=== PATIENT | female | born 1960 | race Caucasian/White ===

== ENCOUNTER 2016-04-27 14:28 | Inpatient (IN) | payer BC, MEDICARE ==
--- NOTE | 2016-04-27 20:18 | ED ---
Psych HPI - General Chief Complaint: Psychiatric Symptoms Stated Complaint: PETITION Time Seen by Provider: 04/27/16 14:46 Source: patient, police Mode of arrival: ambulatory - History of Present Illness Initial Comments: Patient presents to the emerge department by police custody, for disorganized behavior and thought processes. They're concerned that she is a danger to herself and others. Patient denies any fever, chills, chest pain or shortness of breath. She has no belly or back pain. She has no nausea or vomiting. She has not tried to harm herself or others. She has no weakness or trouble walking. - Related Data Home Medications Medication Instructions Recorded Confirmed Diazepam [Valium] 10 mg PO DAILY 04/27/16 04/27/16 oxyCODONE HCL [OxyCONTIN] 60 mg PO BID 04/27/16 04/27/16 Allergies Allergy/AdvReac Type Severity Reaction Status Date / Time bacampicillin Allergy Unknown Verified 04/27/16 15:04 [From Spectrobid] budesonide [From Symbicort] Allergy Unknown Verified 04/27/16 15:04 formoterol [From Symbicort] Allergy Unknown Verified 04/27/16 15:04 pregabalin [From Lyrica] Allergy Unknown Verified 04/27/16 15:04 Review of Systems ROS Statement: Those systems with pertinent positive or pertinent negative responses have been documented in the HPI. ROS Other: All systems not noted in ROS Statement are negative. Past Medical History Past Medical History: No Reported History History of Any Multi-Drug Resistant Organisms: None Reported Past Surgical History: Tubal Ligation Additional Past Surgical History / Comment(s): ovarian cyst removed Past Psychological History: Anxiety, Depression Smoking Status: Current every day smoker Past Alcohol Use History: None Reported Past Drug Use History: None Reported General Exam Limitations: no limitations General appearance: alert, in no apparent distress Head exam: Present: atraumatic, normocephalic, normal inspection Eye exam: Present: normal appearance, PERRL, EOMI. Absent: scleral icterus, conjunctival injection, periorbital swelling ENT exam: Present: normal exam, mucous membranes moist Neck exam: Present: normal inspection. Absent: tenderness, meningismus, lymphadenopathy Respiratory exam: Present: normal lung sounds bilaterally. Absent: respiratory distress, wheezes, rales, rhonchi, stridor Cardiovascular Exam: Present: regular rate, normal rhythm, normal heart sounds. Absent: systolic murmur, diastolic murmur, rubs, gallop, clicks GI/Abdominal exam: Present: soft, normal bowel sounds. Absent: distended, tenderness, guarding, rebound, rigid Extremities exam: Present: normal inspection, full ROM, normal capillary refill. Absent: tenderness, pedal edema, joint swelling, calf tenderness Back exam: Present: normal inspection Neurological exam: Present: alert, oriented X3, CN II-XII intact Psychiatric exam: Present: normal affect, normal mood Skin exam: Present: warm, dry, intact, normal color. Absent: rash Course Vital Signs 04/27/16 04/27/16 14:39 18:49 Temperature 99.0 F Pulse Rate 56 L 83 Respiratory 16 18 Rate Blood Pressure 129/82 151/87 O2 Sat by Pulse 100 97 Oximetry Medical Decision Making - Medical Decision Making Patient presents with psychiatric disorder. She was medically cleared. Psychiatry eval and the patient and will be admitting the patient to their service. - Lab Data Lab Results 04/27/16 Range/Units 15:20 Urine Opiates Screen Not Detected (NotDetected) Ur Oxycodone Screen Detected H (NotDetected) Urine Methadone Screen Not Detected (NotDetected) Ur Propoxyphene Screen Not Detected (NotDetected) Ur Barbiturates Screen Not Detected (NotDetected) U Tricyclic Antidepress Not Detected (NotDetected) Ur Phencyclidine Scrn Not Detected (NotDetected) Ur Amphetamines Screen Not Detected (NotDetected) U Methamphetamines Scrn Not Detected (NotDetected) U Benzodiazepines Scrn Detected H (NotDetected) Urine Cocaine Screen Not Detected (NotDetected) U Marijuana (THC) Screen Not Detected (NotDetected) Disposition Clinical Impression: Psychosis Disposition: TRANSFER TO PSYCH HOSP/UNIT Condition: Fair Time of Disposition: 20:18
[2016-04-27] MEDS ORDERED: MAG HYDROX/AL HYDROX/SIMETH 30 ML CUP PO PRN (22:48)
[2016-04-27] MEDS ORDERED: ZIPRASIDONE 20 MG VIAL IM PRN (22:55)
[2016-04-27] MEDS ORDERED: LORazepam 2 MG/ML SYRINGE IM PRN (23:01)
[2016-04-27] MEDS: LORazepam 1 MG TAB PO PRN (23:35)
[2016-04-27] MEDS: risperiDONE 1 MG TAB PO SCH (23:35)
[2016-04-28] MEDS: risperiDONE 1 MG TAB PO SCH ×2 (08:43→20:27)
[2016-04-28] MEDS: HYDROcodone/APAP 5-325MG 1 EACH TAB PO PRN ×3 (08:45→22:01)
[2016-04-28 08:51] LABS: Basophils % (A) 1 %; CH 32.6; CHCM 32.5; Eosinophils # (A) 0.1 k/uL (0-0.7); Eosinophils % (A) 1 %; HCT 45.8 % (34.0-46.0); HDW 2.14; HGB 14.7 gm/dL (11.4-16.0); Luc # (Auto) 0.09; Luc % (Auto) 2; Lymphocytes # (A) 1.6 k/uL (1.0-4.8); Lymphocytes % (A) 27 %; MCH 32.4 pg (25.0-35.0); MCHC 32.1 g/dL (31.0-37.0); MCV 100.8 fL (80.0-100.0); Mean Platelet Volume 8.8; Monocytes # (A) 0.4 k/uL (0-1.0); Monocytes % (A) 8 %; Neutrophils # (A) 3.6 k/uL (1.3-7.7); Neutrophils % (A) 62 %; RBC 4.54 m/uL (3.80-5.40); RDW 13.4 % (11.5-15.5); WBC 5.8 k/uL (3.8-10.6); WBC (Perox) 5.53
[2016-04-28 09:11] LABS: ALT 43 U/L (9-52); AST 27 U/L (14-36); Alkaline Phosphatase 81 U/L (38-126); Anion Gap 12 mmol/L; Blood Urea Nitrogen 15 mg/dL (7-17); Carbon Dioxide 28 mmol/L (22-30); Chloride 104 mmol/L (98-107); Glucose 80 mg/dL (74-99); Non-African American GFR(MDRD) >60 (>60 ml/min/1.73 sqM); Potassium 4.1 mmol/L (3.5-5.1); Sodium 144 mmol/L (137-145); Total Bilirubin 0.5 mg/dL (0.2-1.3); Total Protein 6.7 g/dL (6.3-8.2)
[2016-04-28] MEDS ORDERED: risperiDONE 1 MG TAB PO SCH (10:45)
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
[2016-04-28] MEDS: SERTRALINE 25 MG TAB PO SCH (12:18)
[2016-04-28] MEDS: GABAPENTIN 400 MG CAP PO SCH ×2 (16:23→20:27)
[2016-04-28] MEDS: NICOTINE 21MG/24HR PATCH TRANSDERM SCH (16:23)
--- NOTE | 2016-04-28 22:32 | CONS ---
DATE OF CONSULTATION: REASON FOR CONSULTATION: Medical clearance and elevated TSH. Patient is admitted for acute psychosis. Patient is clinically doing well. Patient denied any fever, chills, nausea, vomiting, abdominal pain, dysuria. REVIEW OF SYSTEMS: CONSTITUTIONAL: No fever, no malaise, no fatigue. HEENT: No recent visual problems or hearing problems. Denied any sore throat. CARDIOVASCULAR: No chest pain, orthopnea, PND, no palpitations, no syncope. PULMONARY: No shortness of breath, no cough, no hemoptysis. GASTROINTESTINAL: No diarrhea, no nausea, no vomiting, no abdominal pain. Normoactive bowel sounds. NEUROLOGICAL: No headaches, no weakness, no numbness. HEMATOLOGICAL: Denies any bleeding or petechiae. GENITOURINARY: Denies any burning micturition, frequency, or urgency. MUSCULOSKELETAL/RHEUMATOLOGICAL: Denies any joint pain, swelling, or any muscle pain. ENDOCRINE: Denies any polyuria or polydipsia. The rest of the 14 point review of systems is negative. PAST MEDICAL HISTORY: Not significant except for back pain and back pain-related neuropathy, for which patient takes gabapentin. PSYCHOLOGICAL HISTORY: Anxiety, depression. SOCIAL HISTORY: Patient smokes about 1-1/2 packs per day. Denied any alcohol abuse or any drug abuse. Patient's home medications include: 1. Diazepam. 2. Oxycodone. 3. Neurontin. PHYSICAL EXAMINATION: VITAL SIGNS: Temperature 97.2, pulse of 84, respirations of 16. Blood pressure is 115/74. Saturating 92% on room air. GENERAL: The patient is alert and oriented x3, not in any acute distress. Well developed, well nourished. HEENT: Pupils are round and equally reacting to light. EOMI. No scleral icterus. No conjunctival pallor. Normocephalic, atraumatic. No pharyngeal erythema. No thyromegaly. CARDIOVASCULAR: S1 and S2 present. No murmurs, rubs, or gallops. PULMONARY: Chest is clear to auscultation, no wheezing or crackles. ABDOMEN: Soft, nontender, nondistended, normoactive bowel sounds. No palpable organomegaly. MUSCULOSKELETAL: No joint swelling or deformity. EXTREMITIES: No cyanosis, clubbing, or pedal edema. NEUROLOGICAL: Gross neurological examination did not reveal any focal deficits. SKIN: No rashes. LABORATORY DATA: CBC, CMP are essentially within normal limits. TSH is 6.6 and I ordered a T4, which is 1.2. Patient's drug screen is positive for benzodiazepines, although patient appears to have been taking benzodiazepine Valium at home. ASSESSMENT AND PLAN: 1. Acute psychosis. Management as per primary services. 2. Back pain and back spasms, for which I will leave the ( ) and for neuropathy, gabapentin will be continued. Patient is already on Morley. I will leave the decision about continuation of Morley to primary service. 3. Elevated TSH with normal T4. Patient probably has sick euthyroid syndrome. My suspicion is low for subclinical hypothyroidism. Patient's TSH needs to be retested in about a month. 4. Nicotine abuse. We ordered nicotine patch. Counseling was provided. Thank you for letting me participate in this patient's care. Will sign off at this point of time. Please call me back if needed.
[2016-04-29] MEDS: HYDROcodone/APAP 5-325MG 1 EACH TAB PO PRN ×3 (08:19→22:30)
[2016-04-29] MEDS: SERTRALINE 25 MG TAB PO SCH (08:20)
[2016-04-29] MEDS: GABAPENTIN 400 MG CAP PO SCH ×3 (08:20→20:56)
[2016-04-29] MEDS: risperiDONE 1 MG TAB PO SCH ×2 (08:20→20:55)
[2016-04-29] MEDS: NICOTINE 21MG/24HR PATCH TRANSDERM SCH (08:20)
--- NOTE | 2016-04-29 09:08 | P.PN ---
Progress Note - Text Interval history: The patient is found in the dining room finishing breakfast she follows me to an interview room. She states that she slept approximately 3- 4 hours last night she still feels tired. Appetite diminished during the morning hours she states this improves during the course of the day into the evening. She states that she had a visit from her son and [id number] and that went well. She continues to harbor paranoid and persecutory thoughts as previously noted. She continues to lack insight into her presenting symptoms and asked to be discharged. She states she feels like she is a "dwyer of the court" and feels uncomfortable. Mental status exam: The patient is a female appearing her stated age, she has a disheveled appearance she is dressed in hospital gown. Eye contact is appropriate speech is spontaneous fluent nonpressured. She continues to spontaneously report paranoid and persecutory thoughts. Insight and judgment are impaired. She is reporting no thoughts of self-harm or harm to others. She demonstrates no verbal or physical aggressiveness. Thought process for the most part is linear today. She does not appear hypomanic or manic. Affect remains blunted throughout the session. Plan: The patient will continue on the Risperdal and Zoloft as written. We are awaiting records from [facility], her last psychiatric hospitalization from January. We will monitor her for safety we will continue to provide reality orientation when possible. She is encouraged to continue participating in group. Vital signs reviewed.
[2016-04-30] MEDS: HYDROcodone/APAP 5-325MG 1 EACH TAB PO PRN ×3 (06:07→20:21)
[2016-04-30] MEDS: NICOTINE 21MG/24HR PATCH TRANSDERM SCH (08:42)
[2016-04-30] MEDS: SERTRALINE 25 MG TAB PO SCH (08:43)
[2016-04-30] MEDS: GABAPENTIN 400 MG CAP PO SCH ×3 (08:43→20:19)
[2016-04-30] MEDS: risperiDONE 1 MG TAB PO SCH (08:43)
--- NOTE | 2016-04-30 09:14 | P.PN ---
Progress Note - Text Interval history: The patient is found in the hallway she follows me to an interview room. She reports that she would like to be discharged. She states is no reason for her to be here in the hospital. She states there is no such thing as a contact order between her and . She goes on to report that the police are ignoring all of the things that are happening to her. She spent several minutes describing how family members police the hospital and others are doing things to her. She has been compliant with her medication here on the mental health unit. She reports having an increased production of saliva but does not want to utilize Cogentin as she states she also has dry mouth. We discussed other antipsychotic medication choices but no others were acceptable. Mental status exam: The patient is a female appearing her stated age. Hygiene grooming adequate she is dressed in her own clothing. Speech is fluent and spontaneous she is verbose mildly pressured at times. She continues to spontaneously describe paranoid and persecutory thoughts involving most lozoya of her life and involving most people in her life. She lacks insight into her current symptoms for this hospitalization and the prior hospitalization. She states that I'm keeping her here because of her insurance and what I will get paid. She demonstrates no verbal or physical aggressiveness. Thought process is circumstantial and tangential at times. Affect is constricted. Plan: The patient will continue on her current psychotropic medications we will consider titrating the Risperdal further. We will consider adding Cogentin to ameliorate side effects as needed. We will continue to provide reality orientation when possible. We will monitor her for safety. Vital signs were reviewed. Dr. Valverde will provide coverage over the weekend.
[2016-04-30] MEDS ORDERED: BENZTROPINE MESYLATE 0.5 MG TAB PO PRN (09:20)
[2016-04-30] MEDS: risperiDONE ODT 1 MG TAB PO SCH (20:19)
[2016-05-01] MEDS: HYDROcodone/APAP 5-325MG 1 EACH TAB PO PRN ×4 (04:35→22:11)
[2016-05-01] MEDS: GABAPENTIN 400 MG CAP PO SCH ×3 (08:52→21:17)
[2016-05-01] MEDS: risperiDONE ODT 1 MG TAB PO SCH ×2 (08:52→21:17)
[2016-05-01] MEDS: NICOTINE 21MG/24HR PATCH TRANSDERM SCH (08:53)
[2016-05-01] MEDS: SERTRALINE 25 MG TAB PO SCH (08:53)
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
[2016-05-02] MEDS: HYDROcodone/APAP 5-325MG 1 EACH TAB PO PRN ×4 (04:42→22:03)
[2016-05-02] MEDS: risperiDONE ODT 1 MG TAB PO SCH ×2 (09:08→22:02)
[2016-05-02] MEDS: GABAPENTIN 400 MG CAP PO SCH ×3 (09:08→22:02)
[2016-05-02] MEDS: SERTRALINE 25 MG TAB PO SCH (09:08)
[2016-05-02] MEDS: NICOTINE 21MG/24HR PATCH TRANSDERM SCH (09:08)
--- NOTE | 2016-05-02 15:38 | P.PN ---
Subjective Psychiatric progress notes. Patient is a very pleasant 56-year-old white female who comes readily for the evaluation and though she was convincing as to her statements yesterday as to why she is here and people stealing things from her house was not so convincing today. for many questionable areas she was somewhat evasive or responded that she did not know. The more she discussed it was becoming obvious that many of her believes are of a delusional nature. Patient is not sure whether she can go home. Apparently she had been spending money on monitoring equipments due to her delusions. Patient does not appear to be against treatment though she is vague as to its need. Mental status. Somewhat thin built alert and pleasant female who is dressed in her own clothes and coming readily for the evaluation. Does not show any significant psychomotor disturbance. Her attention and concentration could be aroused and sustained. Speech and thought process did not show any abnormal traits; however her thought content was focusing on many delusional believes of people trying to steal from her and having concerns about the safety and security at her. Denies any hallucinations. Sleeping good. Limited in insight and judgment. Continue current treatment plans. Objective - Vital Signs Vital signs: Vital Signs Temp 97.7 F 05/02/16 06:50 Pulse 72 05/02/16 06:50 Resp 16 05/02/16 06:50 BP 119/83 05/02/16 06:50 Pulse Ox 100 04/29/16 00:18 Intake & Output 05/01/16 05/02/16 05/02/16 18:59 06:59 18:59 Weight 45.7 kg - Labs CBC & Chem 7: 04/28/16 08:17 04/28/16 08:17
[2016-05-03] MEDS: HYDROcodone/APAP 5-325MG 1 EACH TAB PO PRN ×3 (06:53→20:23)
[2016-05-03] MEDS: NICOTINE 21MG/24HR PATCH TRANSDERM SCH (08:49)
[2016-05-03] MEDS: risperiDONE ODT 1 MG TAB PO SCH ×2 (08:50→20:24)
[2016-05-03] MEDS: GABAPENTIN 400 MG CAP PO SCH ×3 (08:50→20:24)
[2016-05-03] MEDS: SERTRALINE 25 MG TAB PO SCH (08:50)
--- NOTE | 2016-05-03 14:10 | P.PN ---
Progress Note - Text CLINICAL PROBLEMS: She is a 56-year-old female who has history of a psychotic disorder. She presented to unit involuntary under an alternate treatment order after failing to follow through with outpatient treatment. On admission she was paranoid and suspicious. She expressed a delusional belief regarding being monitored by "other individuals" and her cable service provider. She complained of back, hip and neck pain that is not relieved by her current opioid pain medication. She stated that she takes OxyContin 60 mg by mouth twice a day at home. She denied opiate withdrawal symptoms. She also complained of drooling and increased nightmares since she started risperidone. She wishes to return to live with her . She alleges that the "no contact " order was placed by the courts and her plans to "drop the charges". 24 HOUR EVENTS: She has been compliant with prescribed medications included risperidone 1 mg twice a day. She slept for 5 hours last night. She remains on 15 minute checks. She is posed no management problem. EXAMINATION: She presented as a casually groomed and 56-year-old woman who was pleasant on approach. She maintained eye contact and attended to the interview. She had no distinction wishing features or prominent physical modalities. She had a bright facial expression. She was alert and oriented to person, place and time. She showed no abnormality of psychomotor activity. She had a normal gait and station. She had no abnormal involuntary movements. Her speech was spontaneous with normal rate, rhythm and volume. She had no articulation difficulties. Her affect was blunted but stable and appropriate. She denied suicidal ideation or wishes. She denied homicidal ideation. She denied depressive cognitions such as hopelessness, helplessness and worthlessness. She denied ideas of reference, thought insertion, thought broadcasting or thought control. She did not express paranoid ideation or delusional thoughts. She denied feeling that she was being in monitored or observed. She denied hallucinations and did not appear to be responding to internal stimuli. PERTINENT DATA: Her TSH on 04/28/2016 6.6. According to the loom control chain builder corporate travel consultant she "probably has a sick euthyroid syndrome"and does not require thyroid replacement. The loom control chain builder did not recommend opiate pain medications for the treatment of her complaints of pain. ASSESSMENT: She is not showing signs or symptoms of psychosis. She is not paranoid or suspicious. PLAN: Continue risperidone 1 mg by mouth twice a day, sertraline 25 mg daily and benztropine 0.5 mg twice a day. Gabapentin 800 mg by mouth 3 times a day for pain and [place] one by mouth 4 times a day when necessary for pain. Encourage participation in therapeutic groups and activities. Evaluate clinical status and response to treatment daily basis..
[2016-05-04] MEDS: ACETAMINOPHEN TAB 325 MG TAB PO PRN (00:24)
[2016-05-04] MEDS: HYDROcodone/APAP 5-325MG 1 EACH TAB PO PRN ×3 (06:50→18:50)
[2016-05-04] MEDS: GABAPENTIN 400 MG CAP PO SCH ×3 (09:04→20:44)
[2016-05-04] MEDS: SERTRALINE 25 MG TAB PO SCH (09:04)
[2016-05-04] MEDS: NICOTINE 21MG/24HR PATCH TRANSDERM SCH (09:04)
[2016-05-04] MEDS: risperiDONE ODT 1 MG TAB PO SCH ×2 (09:05→20:43)
--- NOTE | 2016-05-04 11:15 | P.PN ---
Progress Note - Text Interval history: The patient is found in the hallway she follows me to an interview room. She states that everyone has told her she will be discharged today although we have not had that conversation. Notes from the weekend were reviewed including Sachi progress notes and Dr. Jefferson's progress note. She does continue to harbor paranoid and person Jerrica thinking although she is spontaneously verbalizing less often. Staff reports that she has been doing better with attending groups longer. She has been participating in meals. She has been compliant with the Risperdal as it is a dissolvable tablet. She is motivated for discharge. She is providing conflicting information regarding her versus information social work provides. She reports that her mother did visit over the weekend and that went well. Mental status exam: The patient is alert she is dressed in her own clothing hygiene grooming adequate. Eye contact appropriate speech is fluent nonpressured as the session goes on she does become more verbose. She does continue to harbor paranoid and persecutory thoughts although she is less often spontaneously verbalizing those concerns. Insight and judgment continued appear to be limited although overall slowly improving. She is reporting no suicidal or homicidal ideation. Cognitively she is alert and oriented. There is no verbal or physical aggressiveness. Plan: The patient continues to demonstrate symptoms of psychosis. He seemed to be very slowly improving. Function on the unit is improving. We will titrate the Risperdal M tab to 1 mg in the morning and 1.5 mg in the evening. She will continue on the Zoloft we will continue to monitor for side effects. She does still require inpatient psychiatric hospitalization if she demonstrates sufficient clinical improvement we would consider discharge by the end of the week. Vital signs reviewed.
[2016-05-05] MEDS: HYDROcodone/APAP 5-325MG 1 EACH TAB PO PRN ×4 (00:23→18:18)
[2016-05-05] MEDS: NICOTINE 21MG/24HR PATCH TRANSDERM SCH (09:26)
[2016-05-05] MEDS: GABAPENTIN 400 MG CAP PO SCH ×3 (09:27→20:46)
[2016-05-05] MEDS: SERTRALINE 25 MG TAB PO SCH (09:27)
[2016-05-05] MEDS: risperiDONE ODT 1 MG TAB PO SCH ×2 (09:27→20:46)
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
[2016-05-06] MEDS: HYDROcodone/APAP 5-325MG 1 EACH TAB PO PRN ×4 (01:07→21:01)
[2016-05-06] MEDS: NICOTINE 21MG/24HR PATCH TRANSDERM SCH (08:00)
[2016-05-06] MEDS: risperiDONE ODT 1 MG TAB PO SCH (08:01)
[2016-05-06] MEDS: GABAPENTIN 400 MG CAP PO SCH ×3 (08:01→20:59)
[2016-05-06] MEDS: SERTRALINE 25 MG TAB PO SCH (08:02)
--- NOTE | 2016-05-06 10:27 | P.PN ---
Progress Note - Text Interval history: The patient is found in the hallway she follows me to an interview room. She continues to spontaneously reports paranoid and persecutory thoughts. She states that the Risperdal is causing her head to feel funny and her appetite remains increased. She verbalizes that she will not want to continue this medication especially after discharge. We discussed alternatives to Risperdal for her symptoms of psychosis. Again she continues to have no insight into her symptoms of psychosis and states "these things are real". Mental status exam: The patient is alert she seated calmly she is dressed in her own clothing. Eye contact is adequate speech is fluent spontaneous she is verbose. Thought process is tangential today. There is no flight of ideas. She continues to endorse paranoid and persecutory thinking. She feels family members the police and others are doing things to her. She states I am only keeping her here to charge her insurance company. Insight and judgment are impaired. She demonstrates no verbal or physical aggressiveness. Her voice does become louder and she becomes more pressured when she is told that she is not able to be discharged yet. Plan: The patient will continue on the Zoloft. We will transition her off of Risperdal onto Geodon to address her concerns related to side effects. The patient requires continued inpatient psychiatric hospitalization. We will proceed with petitioning to extend her court ordered treatment past May 25. We will monitor her for safety and encourage her participation in the milieu. Vital signs reviewed.
[2016-05-06] MEDS: ACETAMINOPHEN TAB 325 MG TAB PO PRN (12:39)
[2016-05-06] MEDS: ZIPRASIDONE 40 MG CAP PO SCH (17:42)
[2016-05-07] MEDS: HYDROcodone/APAP 5-325MG 1 EACH TAB PO PRN ×3 (07:02→20:58)
[2016-05-07] MEDS: SERTRALINE 25 MG TAB PO SCH (08:35)
[2016-05-07] MEDS: GABAPENTIN 400 MG CAP PO SCH ×3 (08:35→20:57)
[2016-05-07] MEDS: NICOTINE 21MG/24HR PATCH TRANSDERM SCH (08:35)
[2016-05-07] MEDS: ZIPRASIDONE 40 MG CAP PO SCH ×2 (08:35→18:30)
--- NOTE | 2016-05-07 10:24 | P.PN ---
Progress Note - Text The patient is found in group she follows me to an interview room. She seated quietly with no spontaneous speech. When asked how she is feeling she states "whatever". She was concerned that she had some epistaxis this morning but that has resolved. We discussed her current medications specifically the recent change from Risperdal to Geodon. We have filed for an extension of her court order. She reports that she was able to sleep last night she states that she is eating. Vital signs are reviewed and they are within normal limits. Mental status exam: The patient is a thin female appearing her stated age. She has a disheveled appearance she is dressed in her own clothing. Eye contact is poor today. She seated quietly without speaking she offers brief answers to questions asked. She demonstrates a sullen affect. She continues to have evidence of delusional thought mainly paranoid persecutory in nature. She does offer some somatic hypervigilance today. Insight and judgment are impaired. There is no verbal or physical aggressiveness. She demonstrates psychomotor slowing no psychomotor agitation. She is oriented to person place and date. She reports no suicidal or homicidal ideation. Plan: The patient will continue on her current medication we will plan to titrate the Geodon to 60 mg twice daily over the weekend. We will monitor her vitals and monitor her for safety. We will provide reality orientation when possible. Dr. Fontana will provide coverage over the weekend.
[2016-05-07] MEDS: ACETAMINOPHEN TAB 325 MG TAB PO PRN (15:38)
[2016-05-08] MEDS: LORazepam 1 MG TAB PO PRN (00:07)
[2016-05-08] MEDS: ACETAMINOPHEN TAB 325 MG TAB PO PRN ×2 (00:08→10:57)
[2016-05-08] MEDS: SERTRALINE 25 MG TAB PO SCH (09:07)
[2016-05-08] MEDS: GABAPENTIN 400 MG CAP PO SCH ×3 (09:07→20:53)
[2016-05-08] MEDS: NICOTINE 21MG/24HR PATCH TRANSDERM SCH (09:07)
[2016-05-08] MEDS: ZIPRASIDONE 40 MG CAP PO SCH ×2 (09:07→18:07)
[2016-05-08] MEDS: HYDROcodone/APAP 5-325MG 1 EACH TAB PO PRN ×2 (09:08→16:03)
--- NOTE | 2016-05-08 20:20 | P.PN ---
Progress Note - Text Interval history: Patient seen in cross coverage today for Dr. Radofrd. She reports that she doesn't need to be here. We talk about her recent change from Risperdal to Geodon. She states that she feels dizziness on the Geodon and does not want to increase at this time. She seems to relay that she is sleeping well and her appetite is fine. Mental status exam: She is alert and overall cooperative with the interview. She reports her mood is agitated because she doesn't need to be here. She does not verbalize any hallucinations. Her affect is restricted. She does not verbalize any thoughts of harm to self or others. Plan: We'll maintain current psychotropic medications. We'll continue to monitor for medication side effects. We discussed looking at further titration of Geodon perhaps tomorrow once she has further adjusted to the medication. We' ll continue to cover for Dr. Radford through the weekend.
[2016-05-09] MEDS: HYDROcodone/APAP 5-325MG 1 EACH TAB PO PRN ×3 (04:33→21:12)
[2016-05-09] MEDS: ACETAMINOPHEN TAB 325 MG TAB PO PRN (07:05)
[2016-05-09] MEDS: NICOTINE 21MG/24HR PATCH TRANSDERM SCH (09:00)
[2016-05-09] MEDS: SERTRALINE 25 MG TAB PO SCH (09:02)
[2016-05-09] MEDS: ZIPRASIDONE 40 MG CAP PO SCH ×4 (09:02→18:14)
[2016-05-09] MEDS: GABAPENTIN 400 MG CAP PO SCH ×3 (09:37→21:13)
[2016-05-09] MEDS: LORazepam 1 MG TAB PO PRN (17:34)
--- NOTE | 2016-05-09 20:17 | P.PN ---
Progress Note - Text Interval history: Patient seen in cross coverage today for Dr. Radford. She does describe some ongoing dizziness, had elevated blood pressures earlier today of 129/101 72/104. After receiving an Ativan pressure was improved to 158/92. She voices concern over side effect of Geodon. She has been compliant with the Geodon. She did have a visit from a friend today which seemed to go well. Mental status exam: She is alert and cooperative with the interview. Her mood today seems to be stable. She does not show any irritability or agitation. She does not verbalize any paranoid thoughts or hallucinations. She denies any thoughts of harm to self or others. Her thought processes are organized. Plan: We'll maintain Geodon as current due to concerns of recent elevated blood pressure and concern of side effects. If she is having side effects we will look for improvement and she continues to adjust to the medication. We'll continue to monitor her blood pressure. Dr. Radford to resume care this patient starting tomorrow.
[2016-05-10] MEDS: HYDROcodone/APAP 5-325MG 1 EACH TAB PO PRN ×3 (04:10→21:17)
[2016-05-10] MEDS: GABAPENTIN 400 MG CAP PO SCH ×3 (08:52→21:17)
[2016-05-10] MEDS: NICOTINE 21MG/24HR PATCH TRANSDERM SCH (08:52)
[2016-05-10] MEDS: SERTRALINE 25 MG TAB PO SCH (08:52)
[2016-05-10] MEDS: ZIPRASIDONE 40 MG CAP PO SCH (08:52)
--- NOTE | 2016-05-10 11:37 | P.PN ---
Progress Note - Text Interval history: The patient is found in her room she follows me to an interview room. Since using the Geodon she states she's been having more side effects and would prefer to go back to Risperdal. She continues to lack insight into her admission she continues to verbalize paranoid prescribed 20 thoughts. Vital signs reviewed she has had some elevated blood pressure reading she feels it is due to the Geodon. She reports having visiting over the weekend by her sister's social work will contact them to gather collateral information. Mental status exam: The patient is alert she seated calmly in the chair she reports that her mood is troubled because she is still here in the hospital. She spontaneously continues to report paranoid persecutory thoughts. She feels that we are "sadomasochistic" and were keeping her here for no reason. Affect is blunted. Speech is spontaneous fluent nonpressured. Thought process can be linear she can be circumstantial at times. Insight and judgment are limited. She continues to have no appreciation for symptoms of psychosis she presented with. Staff report that they continue to see evidence of this as well. She demonstrates no verbal or physical aggressiveness. Plan: We will go ahead and discontinue the Geodon and resume using Risperdal M tab. We will continue to encourage her participation in the milieu will monitor her for safety. Social work will contact family to assess current status in their opinion. We will continue to monitor vital signs and provide reality orientation when possible.
[2016-05-10] MEDS: risperiDONE ODT 1 MG TAB PO SCH (21:16)
[2016-05-10] MEDS: LORazepam 1 MG TAB PO PRN (21:30)
[2016-05-11] MEDS: risperiDONE ODT 1 MG TAB PO SCH ×2 (08:12→20:27)
[2016-05-11] MEDS: NICOTINE 21MG/24HR PATCH TRANSDERM SCH (08:12)
[2016-05-11] MEDS: GABAPENTIN 400 MG CAP PO SCH ×3 (08:13→20:27)
[2016-05-11] MEDS: HYDROcodone/APAP 5-325MG 1 EACH TAB PO PRN ×3 (08:13→22:44)
[2016-05-11] MEDS: SERTRALINE 25 MG TAB PO SCH (08:13)
--- NOTE | 2016-05-11 11:58 | P.PN ---
Progress Note - Text Interval history: The patient is found in the hallway she follows me to an interview room. She continues to state that she would like to be discharged. She feels better with the Geodon being discontinued and states her head feels better and she is not having a headache any longer. She continues to struggle with paranoid thoughts that involve family and the police. Her function on the unit seems to be slowly improving. Mental status exam: The patient is alert she is dressed in her own clothing hygiene grooming adequate speech is fluent nonpressured. She engages more in the interview today. She does continue to have paranoid and persecutory thoughts. She is speaking of these less spontaneously. Insight and judgment limited. Thought process for the most part is linear she can become circumstantial at times. There is no verbal or physical aggressiveness noted. Plan: The patient will continue on her current medications we have just restarted the Risperdal M tab. I will increase the Zoloft to 50 mg daily to help with mood symptoms and possible anxiety. We will continue to monitor for safety and encourage her participation in the milieu. We have scheduled for a court hearing to extend her court order. Social will be asked to confer with family as part of discharge planning. We will continue to monitor her function on the mental health unit and provide reality orientation when possible.
[2016-05-11] MEDS: ACETAMINOPHEN TAB 325 MG TAB PO PRN (16:03)
[2016-05-11] MEDS: LORazepam 1 MG TAB PO PRN (16:03)
[2016-05-12] MEDS: LORazepam 1 MG TAB PO PRN ×2 (01:16→20:53)
[2016-05-12] MEDS: HYDROcodone/APAP 5-325MG 1 EACH TAB PO PRN ×3 (06:29→22:59)
[2016-05-12] MEDS: NICOTINE 21MG/24HR PATCH TRANSDERM SCH (09:11)
[2016-05-12] MEDS: SERTRALINE 50 MG TAB PO SCH (09:11)
[2016-05-12] MEDS: GABAPENTIN 400 MG CAP PO SCH ×3 (09:11→20:52)
[2016-05-12] MEDS: risperiDONE ODT 1 MG TAB PO SCH ×2 (09:11→20:52)
--- NOTE | 2016-05-12 10:59 | P.PN ---
Progress Note - Text Interval history: The patient is found in the hallway she follows me to an interview room. Staff report that the patient has been attending fewer groups lately. The patient states that she would like to be discharged she doesn't understand why she was admitted to begin with. She has been functioning better on the unit in terms of eating behavior showering. There have been no outbursts and she has been directable. Spontaneously she does not speak of her paranoid thoughts but they do become apparent during the interview. She is reporting no thoughts of self-harm or harm to others. She does discuss things that need to be done such as doing her taxes and other data communications analyst. She does plan on staying with her mother upon discharge. Mental status exam: The patient is a short statured thin female she is dressed in her own clothing hygiene grooming adequate. Speech is fluent spontaneous nonpressured. She is mildly circumstantial at times but not tangential no flight of ideas or loose associations. She continues to have paranoid persecutory thoughts. She is endorsing no auditory or visual hallucinations. There is no suicidal or homicidal ideation intent or plan. There is no verbal or physical aggressiveness. Insight and judgment slowly improving. Plan: The patient will continue on her current medication. She is encouraged to participate in the milieu further. Social work will contact her and mother again. We will anticipate a possible discharge of Tuesday. Vital signs reviewed.
[2016-05-12 15:06] VITALS: BMI 19.6
[2016-05-13] MEDS: ACETAMINOPHEN TAB 325 MG TAB PO PRN (01:23)
[2016-05-13] MEDS: HYDROcodone/APAP 5-325MG 1 EACH TAB PO PRN ×3 (07:47→19:22)
[2016-05-13] MEDS: NICOTINE 21MG/24HR PATCH TRANSDERM SCH (09:14)
[2016-05-13] MEDS: risperiDONE ODT 1 MG TAB PO SCH ×2 (09:14→21:14)
[2016-05-13] MEDS: GABAPENTIN 400 MG CAP PO SCH ×3 (09:14→21:14)
[2016-05-13] MEDS: SERTRALINE 50 MG TAB PO SCH (09:14)
--- NOTE | 2016-05-13 10:02 | P.PN ---
Progress Note - Text Interval history: The patient is found in her room she follows me to an interview room. She reports that she is ready for discharge. She remains compliant with the Risperdal she has no questions regarding her medication. We have continued the Zoloft as well. We discussed possibly discharging her tomorrow. She reports having a visit with her sister and feels that it went well. She does describe several plans she has upon discharge in terms of taking care of legal issues. She has no other questions or concerns today. Mental status exam: The patient is a thin short statured female. She is dressed in her own clothing. Eye contact is appropriate speech is fluent spontaneous nonpressured. Thought process is linear she provides brief answers. There is some mild range of affect that is appropriate. She continues to have some delusional thought content but she does not spontaneously speak of it. In session she demonstrates no tangential thinking loose associations or flight of ideas. Insight and judgment are very slowly improving. She demonstrates no verbal or physical aggressiveness. Plan: The patient will continue on her current psychotropic medications. We will plan on discharging her tomorrow if she demonstrates continued clinical improvement/stability. We will continue to monitor her for safety, provide reality orientation when possible, vital signs reviewed.
[2016-05-13] MEDS: LORazepam 1 MG TAB PO PRN (16:46)
[2016-05-14] MEDS: HYDROcodone/APAP 5-325MG 1 EACH TAB PO PRN ×3 (00:36→12:23)
[2016-05-14 07:10] VITALS: BP 109/82; PULSE 95; RESP 14; TEMP 98.1
[2016-05-14] MEDS: risperiDONE ODT 1 MG TAB PO SCH (09:14)
[2016-05-14] MEDS: GABAPENTIN 400 MG CAP PO SCH (09:14)
[2016-05-14] MEDS: NICOTINE 21MG/24HR PATCH TRANSDERM SCH (09:14)
[2016-05-14] MEDS: SERTRALINE 50 MG TAB PO SCH (09:15)
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
== END 2016-05-14 13:48 | disposition home or self-care (01) | DRG 885 ==
LOC: EC 14:28 → 3MHU 21:48
PROVIDERS: ADMIT Psychiatry & Neurology Psychiatry; ATTEND Psychiatry & Neurology Psychiatry
DX: F29 Unspecified psychosis not due to a substance or known physiological condition (principal); F32.3 Major depressive disorder, single episode, severe with psychotic features; G62.9 Polyneuropathy, unspecified; F17.200 Nicotine dependence, unspecified, uncomplicated; E07.81 Sick-euthyroid syndrome; Z91.19 Patient's noncompliance with other medical treatment and regimen; G89.29 Other chronic pain; M54.9 Dorsalgia, unspecified
CPT/HCPCS: 80053; 80300; 84439; 84443; 85025; 99285

== ENCOUNTER → 2016-05-20 | Outpatient (CLI) | payer BC ==
--- NOTE | 2016-05-21 07:29 | MM ---
Reason for exam: clinical finding. Last mammogram was performed 3 years and 4 months ago. History: Patient history of breast cancer. Family history of breast cancer in sister at age 40. Excisional biopsy, May 12, 2009. Indicated problem(s): lump or thickening and pain in the left breast. Physical Findings: Nurse Summary: 1.5cm nodule in the left breast at 12 o'clock (nurse mm). MG Diagnostic Mammo w CAD RIO Bilateral CC and MLO view(s) were taken. Prior study comparison: January 18, 2013, CAD bilateral diagnostic mammogram. July 27, 2011, CAD bilateral diagnostic mammogram. The breast tissue is heterogeneously dense. This may lower the sensitivity of mammography. Inferior nodular asymmetry right breast measures 7mm and persists on the spot view. The 12 o'clock palpable marker left breast. There is a new focus of fat necrosis in the left breast. These results were verbally communicated with the patient and result sheet given to the patient on 05/20/16. ASSESSMENT: Incomplete: need additional imaging evaluation, BI-RAD 0 RECOMMENDATION: Ultrasound of both breasts. (right 3-9 o'clock, left 12 o'clock palpable)
--- NOTE | 2016-05-21 07:41 | USB ---
Reason for exam: additional evaluation requested from abnormal screening. History: Patient history of breast cancer. Family history of breast cancer in sister at age 40. Excisional biopsy, May 12, 2009. US Breast Limited BILAT Left breast ultrasound demonstrates a 0.37 x 0.37 x 0.44cm small, hypoechoic but corresponds to the palpable site. We note a provided history of atypical excision on the left breast. Given that this is palpable and with the patient's history, biopsy is recommended. Right breast ultrasound demonstrates a 0.72 x 0.38 x 0.76cm ovoid, circumscribed hypoechoic possibly a complicated cyst with thru transmission at 7 o'clock and a 0.82 x 1.1 x 0.41cm complex cyst versus cyst cluster at 9 o'clock for which a 6 month follow up is recommended (both lesions) These results were verbally communicated with the patient and result sheet given to the patient on 05/18/18. ASSESSMENT: Suspicious, BI-RAD 4 RECOMMENDATION: Surgical consultation and ultrasound core biopsy of the left breast. (palpable 11:30) Called Dr. Forrest with mammographic findings. Patient requests to schedule appointment with Dr. Gaytan. PRELIMINARY REPORT CALLED AND FAXED TO DR. GAYTAN ON 05/21/16 AT 300/TP. [facility]
== END | disposition home or self-care (01) ==
LOC: RADMAMWWP 14:22
PROVIDERS: ATTEND Family Medicine
DX: R92.8 Other abnormal and inconclusive findings on diagnostic imaging of breast (principal); N64.4 Mastodynia; N63 Unspecified lump in breast
CPT/HCPCS: 76642; G0204

== ENCOUNTER → 2016-06-07 | Day surgery (SDC) | payer BC ==
[~2016-06-07] MED LIST: BACITRACIN OINT 1 EACH PACKET TOPICAL ONE; LIDOCAINE 1% INJ 10MG/ML (20 ML MDV) ONE; SODIUM BICARB 4% 5 ML VIAL (0.48 MEQ/ML) ONE
--- NOTE | 2016-06-07 08:40 | USB ---
EXAMINATION TYPE: US biopsy breast VAD LT, MG diagnostic mammo LT wo CAD DATE OF EXAM: 06/07/2016 8:16 AM CLINICAL HISTORY: R92.8 abnormal mammo. TECHNIQUE: Ultrasound guided core biopsy of left breast. COMPARISON: NONE FINDINGS: The procedure of ultrasound guided core biopsy was explained to the patient. Benefits, alternatives, and risks were discussed. An informed consent was then obtained. The patient was placed in supine positioning for imaging and for the procedure. The overlying skin was prepped and draped in usual sterile fashion. Lidocaine buffered with bicarbonate was used as anesthetic into the skin and subcutaneous tissue up to area of concern in the left breast. A vincent was made with surgical scalpel. Under ultrasound guidance, a 12-gauge vacuum assisted biopsy gun device was used to obtain 2 core samples. The lesion could no longer be visualized at which point additional samples were not obtained. Following this, a biopsy clip was left in lesion. Mammogram demonstrates appropriate placement. The patient tolerated the procedure well without any immediate complication. The patient was kept in the radiology department for short stay after the procedure and then discharged home in stable condition. IMPRESSION: Successful, uncomplicated ultrasound guided core biopsy of area of concern in the left breast, full pathology results to follow. Pathology Results: Benign BREAST, LEFT, CORE BIOPSY: FIBROCYSTIC CHANGES INCLUDING FIBROSIS AND CYST WALL WITH INTRALUMINAL MICROCALCIFICATIONS. Recommendation Follow up ultrasound of the left breast in 6 months. [facility]
== END ==
LOC: RADUSWWP 07:08
PROVIDERS: ATTEND Surgery
DX: N60.12 Diffuse cystic mastopathy of left breast (principal); R92.0 Mammographic microcalcification found on diagnostic imaging of breast; R92.8 Other abnormal and inconclusive findings on diagnostic imaging of breast
CPT/HCPCS: 88305; 19083; G0206; A4648; J2001

== ENCOUNTER → 2017-07-15 | Outpatient (CLI) | payer BC, MEDICARE ==
--- NOTE | 2017-07-18 12:05 | MM ---
Reason for exam: additional evaluation requested from prior study. Last mammogram was performed 1 year and 1 month ago. History: Patient is postmenopausal and history of breast cancer. Family history of breast cancer in sister at age 40. Benign US biopsy breast VAD LT of the left breast, June 07, 2016. Excisional biopsy, May 12, 2009. Benign excisional biopsy of both breasts, 2007. Taking estrogen. Physical Findings: Nurse did not find any significant physical abnormalities on exam. MG 3D Diag Mammo W/Cad RIO Bilateral CC and MLO view(s) were taken. Prior study comparison: June 07, 2016, left breast MG diagnostic mammo LT wo CAD. May 20, 2016, bilateral MG diagnostic mammo w CAD RIO. The breast tissue is heterogeneously dense. This may lower the sensitivity of mammography. Stable calcifications. Chronic nodularity. There is no dominant lesion. These results were verbally communicated with the patient and result sheet given to the patient on 07/15/17. ASSESSMENT: Incomplete: need additional imaging evaluation, BI-RAD 0 RECOMMENDATION: Ultrasound of the left breast.
--- NOTE | 2017-07-18 12:07 | USB ---
Reason for exam: additional evaluation requested from abnormal screening. History: Patient is postmenopausal and history of breast cancer. Family history of breast cancer in sister at age 40. Benign US biopsy breast VAD LT of the left breast, June 07, 2016. Excisional biopsy, May 12, 2009. Benign excisional biopsy of both breasts, 2007. Taking estrogen. US Breast LT Left breast ultrasound includes all four quadrants, the retroareolar region and axilla. Finding demonstrates a 0.7 x 0.5 x 0.4cm oval lipoma, solid lesion at 3 o'clock, a 0.9 x 0.3 x 0.2cm oval, mixed lesion at 4 o'clock, a 0.6 x 0.5 x 0.3cm oval lipoma, solid lesion at 10 o'clock, a 0.3 x 0.3 x 0.1cm oval lesion too small to characterize at 10 o'clock and a 0.2 x 0.3 x 0.2cm oval lipoma, solid lesion at 11 o'clock. These results were verbally communicated with the patient and result sheet given to the patient on 07/15/17. ASSESSMENT: Benign, BI-RAD 2 RECOMMENDATION: Routine screening mammogram of both breasts in 1 year.
== END | disposition home or self-care (01) ==
LOC: RADMAMWWP 14:36
PROVIDERS: ATTEND Family Medicine
DX: R92.8 Other abnormal and inconclusive findings on diagnostic imaging of breast (principal)
CPT/HCPCS: 77066; 76641; G0279

== ENCOUNTER → 2018-01-09 | Outpatient (CLI) | payer BC, MEDICARE ==
--- NOTE | 2018-01-10 08:09 | US ---
EXAMINATION TYPE: US thyroid st tissue head/neck DATE OF EXAM: 01/09/2018 COMPARISON: NONE CLINICAL HISTORY: E04.9 GOITER. Difficulty swallowing and raspy voice GLAND SIZE: Right Lobe: 3.7 x 1.5 x 1.1 cm Overall Parenchyma: homogenous Left Lobe: 3.9 x 1.4 x 1.3 cm Overall Parenchyma: homogeneous Isthmus Thickness: 0.2 cm NODULES RIGHT: # of nodules measured on right: 0 LEFT: # of nodules measured on left: 0 ISTHMUS: # of nodules measured in the isthmus: 0 Bilateral neck scanned: no evidence of lymphadenopathy. IMPRESSION: Normal thyroid ultrasound.
== END ==
LOC: RADUSWWP 15:34
PROVIDERS: ATTEND Family Medicine
DX: E04.9 Nontoxic goiter, unspecified (principal)
CPT/HCPCS: 76536

== ENCOUNTER → 2018-04-27 | Day surgery (SDC) | payer BC ==
[2018-04-26 12:01] VITALS: BMI 20.1
[~2018-04-27] MED LIST changes: -BACITRACIN OINT 1 EACH PACKET TOPICAL ONE; +DEXAMETHASONE SOD PHOSPHATE 10 MG/ML 1 ML VIAL IV ONE; +LACTATED RINGERS 1,000 ML IV SCH; +LIDOCAINE 1% 20 ML VIAL (10MG/ML) FOR IV START INTRADERMA ONE; -LIDOCAINE 1% INJ 10MG/ML (20 ML MDV) ONE; +ONDANSETRON 4 MG/2 ML VIAL IVP ONE; +PROPOFOL 10 MG/ML 20 ML VIAL IV ONE; +SCOPOLAMINE 1.5MG/72HR PATCH TRANSDERM ONE; -SODIUM BICARB 4% 5 ML VIAL (0.48 MEQ/ML) ONE
[2018-04-27 09:02] VITALS: RESP 16; TEMP 98.5
--- NOTE | 2018-04-27 10:26 | P.PCN ---
Date of Procedure: 04/27/18 Procedure(s) Performed: BRIEF HISTORY: Patient is a 58-year-old pleasant female, scheduled for an elective colonoscopy as a part of screening for colorectal neoplasia. PROCEDURE PERFORMED: Colonoscopy. PREOPERATIVE DIAGNOSIS: Screening for colon cancer. IV sedation per Anesthesia. PROCEDURE: After informed consent was obtained, the patient, was brought into the endoscopy unit. IV sedation was administered by Anesthesia under continuous monitoring. Digital rectal examination was normal. Initially the Olympus CF- 160 flexible video colonoscope was then inserted in the rectum, gradually advanced into the cecum without any difficulty. Careful examination was performed as the scope was gradually being withdrawn. Ileocecal valve and the appendiceal orifice were visualized and appeared normal. Prep was fair.. Mucosa of the cecum, ascending colon, transverse colon, descending colon, sigmoid colon, and rectum appeared normal. Retroflexion was performed in the rectum and no lesions were seen. The patient tolerated the procedure well. IMPRESSION: Normal-appearing colon from rectum to cecum with no evidence of colorectal neoplasia RECOMMENDATIONS: Findings of this examination were discussed with the patient as well as a family. She was advised to have a repeat screening colonoscopy in 10 years.
[2018-04-27 10:50] VITALS: BP 111/73; PULSE 60
== END ==
LOC: ORWHC2ENDO 08:00
PROVIDERS: ATTEND Internal Medicine Gastroenterology
DX: Z12.11 Encounter for screening for malignant neoplasm of colon (principal); J44.9 Chronic obstructive pulmonary disease, unspecified; F17.210 Nicotine dependence, cigarettes, uncomplicated; M79.7 Fibromyalgia; M19.90 Unspecified osteoarthritis, unspecified site; Z79.891 Long term (current) use of opiate analgesic; Z79.899 Other long term (current) drug therapy; Z88.0 Allergy status to penicillin; Z88.8 Allergy status to other drugs, medicaments and biological substances

== ENCOUNTER → 2019-04-10 | Outpatient (CLI) | payer BC ==
--- NOTE | 2019-04-11 13:11 | MM ---
Reason for exam: additional evaluation requested from prior study. Last mammogram was performed 1 year and 9 months ago. History: Patient is postmenopausal and has history of breast cancer at age 49. Family history of breast cancer in sister at age 40. Benign US biopsy breast VAD LT of the left breast, June 07, 2016. Excisional biopsy, May 12, 2009. Benign excisional biopsy of both breasts, 2007. Taking estrogen for 12 years. Physical Findings: Nurse Summary: 0.5cm nodule in the right breast at 5 o'clock, a 0.5cm nodule in the right breast at 7 o'clock (nurse TM). MG 3D Diag Mammo W/Cad RIO Bilateral CC and MLO view(s) were taken. Prior study comparison: July 15, 2017, bilateral MG 3d diag mammo w/cad RIO. June 07, 2016, left breast MG diagnostic mammo LT wo CAD. The breast tissue is heterogeneously dense. This may lower the sensitivity of mammography. Benign appearing bilateral calcifications. Previous mammotome biopsy in the left breast. There is chronic nodularity in the right breast. These results were verbally communicated with the patient and result sheet given to the patient on 04/10/19. ASSESSMENT: Incomplete: need additional imaging evaluation, BI-RAD 0 RECOMMENDATION: Ultrasound of the right breast.
--- NOTE | 2019-04-11 13:13 | USB ---
Reason for exam: additional evaluation requested from abnormal screening. History: Patient is postmenopausal and has history of breast cancer at age 49. Family history of breast cancer in sister at age 40. Benign US biopsy breast VAD LT of the left breast, June 07, 2016. Excisional biopsy, May 12, 2009. Benign excisional biopsy of both breasts, 2007. Taking estrogen for 12 years. US Breast Limited RT Right limited breast ultrasound including focal area of concern, retroareolar and axilla demonstrates a 0.3 x 0.3 x 0.4cm lesion too small to characterize at 4 o'clock, a 0.6 x 0.3 x 0.6cm hypoechoic lesion at 7 o'clock and a 0.7 x 0.5 x 0.7cm mixed lesion at 7 o'clock. These results were verbally communicated with the patient and result sheet given to the patient on 04/10/19. ASSESSMENT: Suspicious, BI-RAD 4 RECOMMENDATION: Ultrasound core biopsy of the right breast. Called Dr. Forrest's office with mammographic findings and has scheduled an appointment for the patient for 04/12/19 at 12:[address] Leon. Biopsy scheduled for 04/30/19 at 12:20. PRELIMINARY REPORT CALLED AND FAXED TO DR. LEON ON 04/11/19.
== END | disposition home or self-care (01) ==
LOC: RADMAMWWP 13:08
PROVIDERS: ATTEND Family Medicine
DX: R92.8 Other abnormal and inconclusive findings on diagnostic imaging of breast (principal)
CPT/HCPCS: 77062; 77066

== ENCOUNTER → 2019-04-30 | Day surgery (SDC) | payer BC ==
--- NOTE | 2019-04-30 13:30 | USB ---
EXAMINATION TYPE: US biopsy breast VAD RT, MG diagnostic mammo RT wo CAD DATE OF EXAM: 04/30/2019 CLINICAL HISTORY: R92.8 Abnormal Mammogram. TECHNIQUE: Ultrasound guided core biopsy of right breast. COMPARISON: 04/10/2019 FINDINGS: The procedure of ultrasound guided core biopsy was explained to the patient. Benefits, alternatives, and risks were discussed. An informed consent was then obtained. Preprocedural timeout was performed. The patient was placed in supine positioning for imaging and for the procedure. The overlying skin was prepped and draped in usual sterile fashion. 20 cc of 1% lidocaine was used as anesthetic into the skin and subcutaneous tissue up a 0.7 cm mass at the 7:00 position in the right breast. Hydrodissection was performed elevating the right breast mass. Under ultrasound guidance, a 12-gauge vacuum assisted biopsy gun device was used to obtain 3 core samples. Following this, a ribbon-shaped biopsy marker was left at the site of biopsy. Postprocedure mammogram demonstrates appropriate biopsy marker placement. The patient tolerated the procedure well without any immediate complication. The patient was kept in the radiology department for short stay after the procedure and then discharged home in stable condition. IMPRESSION: Successful, uncomplicated ultrasound guided core biopsy of a 7 mm mass at the 7:00 position in the right, low suspicion, full pathology results to follow. Recommendation for the additional 0.4 cm mass at the 4:00 position and 0.6 cm mass at the 7:00 position will be made on radiologic/pathologic correlation. Pathology Results: Benign RIGHT BREAST, ULTRASOUND GUIDED CORE BIOPSY: Fibrocystic changes including sclerosing adenosis, fibrosis and degenerated cellular debris suggestive of cyst contents. Recommendation Follow up mammogram of the right breast in 6 months. [facility]
[2019-04-30 14:05] VITALS: BP 118/86; PULSE 71; RESP 16; TEMP 98.6
== END ==
LOC: RADUSWWP 11:23
PROVIDERS: ATTEND Surgery
DX: N60.11 Diffuse cystic mastopathy of right breast (principal); N60.21 Fibroadenosis of right breast; N63.10 Unspecified lump in the right breast, unspecified quadrant; Z88.0 Allergy status to penicillin; Z88.8 Allergy status to other drugs, medicaments and biological substances
CPT/HCPCS: 88305; 77065; 19083; A4648; J2001

== ENCOUNTER → 2022-04-14 | Outpatient (CLI) | payer MEDICARE | END | disposition home or self-care (01) | LOC: RADBDWWP 14:11 | PROVIDERS: ATTEND Family Medicine | DX: Z53.9 Procedure and treatment not carried out, unspecified reason (principal) ==